=== PATIENT | male | born 1985 | race Two or more races ===

== ENCOUNTER → 2017-06-05 | Outpatient (CLI) | payer OTHER | END | disposition home or self-care (01) | LOC: MRI 09:01 | DX: E11.9 Type 2 diabetes mellitus without complications (principal); K76.0 Fatty (change of) liver, not elsewhere classified; R10.13 Epigastric pain; K30 Functional dyspepsia; R10.2 Pelvic and perineal pain | CPT/HCPCS: 72197 ==

== ENCOUNTER 2017-09-22 07:12 | Outpatient (CLI) | payer OTHER | END 2017-09-22 07:15 | disposition home or self-care (01) | LOC: RAD 07:12 | DX: M06.09 Rheumatoid arthritis without rheumatoid factor, multiple sites (principal) ==

== ENCOUNTER 2020-03-14 12:14 | Outpatient (CLI) | payer OTHER | END 2020-03-14 14:00 | disposition home or self-care (01) | LOC: RAD 12:14 | PROVIDERS: ATTEND General Practice | DX: R05 Cough (principal) ==

== ENCOUNTER 2022-05-09 08:20 | Outpatient (CLI) | payer OTHER | END 2022-05-09 08:27 | disposition home or self-care (01) | LOC: RX STUDY 08:20 | PROVIDERS: ATTEND Internal Medicine Gastroenterology | DX: K21.9 Gastro-esophageal reflux disease without esophagitis (principal); R10.13 Epigastric pain; K30 Functional dyspepsia; K22.89 Other specified disease of esophagus ==

== ENCOUNTER 2022-05-16 11:38 | Emergency (ER) | payer OTHER ==
[~2022-05-16] VITALS: Ht 172.7 cm; Wt 127.5 kg
== END 2022-05-16 23:15 | disposition home or self-care (01) ==
LOC: ER 11:38
DX: R10.84 Generalized abdominal pain (principal); K76.0 Fatty (change of) liver, not elsewhere classified; Q43.3 Congenital malformations of intestinal fixation

== ENCOUNTER 2022-10-08 07:50 | Outpatient (CLI) | payer OTHER | END 2022-10-08 07:52 | disposition home or self-care (01) | LOC: NUCLEAR 07:50 | PROVIDERS: ATTEND Internal Medicine Gastroenterology | DX: E11.9 Type 2 diabetes mellitus without complications (principal); K44.9 Diaphragmatic hernia without obstruction or gangrene; K29.70 Gastritis, unspecified, without bleeding; R16.0 Hepatomegaly, not elsewhere classified; K76.0 Fatty (change of) liver, not elsewhere classified; K22.89 Other specified disease of esophagus; R11.0 Nausea ==